=== PATIENT | male | born 1950 | race Caucasian/White ===

== ENCOUNTER → 2020-03-17 14:58 | Outpatient (CLI) | payer MEDICARE, SELFPAY ==
--- NOTE | ~2020-03-17 | XR_ITS ---
EXAMINATION: [id number] EXAM DATE: 03/17/2020 16:10 INDICATION: pt states he had heart surgery 6 weeks ago, pt has been having pain to the left of thora cic spine at approx. T-10. TECHNIQUE: Frontal projection of the upper left ribs, frontal projection of the lower left ribs, obli que projection of the left ribs, frontal and lateral chest x-ray(s) for interpretation. There is no prior study for comparison. FINDINGS: There are no displaced acute left rib fractures identified. Probable old 7th rib fracture. There is moderate anterior wedging of lower thoracic vertebral body, probably T12, probably chronic. Cardiomediastinal silhouette is normal. Sternotomy wires are present without findings to suggest piyush rnal dehiscence. There is multi segmental left basilar linear airspace disease with evidence of volum e loss suggesting that this is atelectasis. Probable small left pleural effusion as well. Right lung is clear. IMPRESSION: 1. Multisegmental left basilar linear opacities likely atelectasis. 2. Probable small left pleural effusion. Reviewed, dictated and finalized at location A.
== END ==
PROVIDERS: PCP Family Medicine; Visit Provider Family Medicine
DX: M54.6 Pain in thoracic spine (principal); R91.8 Other nonspecific abnormal finding of lung field
CPT/HCPCS: 71101

== ENCOUNTER → 2020-05-12 08:17 | Outpatient (CLI) | payer MEDICARE, SELFPAY ==
--- NOTE | ~2020-05-12 | MR_ITS ---
EXAMINATION: MR thoracic spine wo con DATE: 05/12/2020 09:03 INDICATION: Thoracic spine pain. TECHNIQUE: Magnetic resonance imaging (MRI) of the thoracic spine was performed without intravenous c ontrast. Sagittal localizer T1-weighted FSE of the cervicothoracic spine was obtained. Thoracic spine sequences included sagittal T2-weighted FSE, sagittal T1-weighted SE, Sagittal T2-weighted FS FSE, a nd axial T2-weighted FSE. COMPARISON: None FINDINGS: Thoracic kyphosis.ChronicT5 compression fracture with20% anterior vertebral body height loss. Additio nal [id number] fracture with60% anterior vertebral body height loss and a couple millimeter retr opulsion at the cephalad aspect of the posterior wall of the vertebral body. Remaining vertebral body heights are normal. Normal marrow signal. Moderate disc height loss at T7-T8, T8-T9 and to T10-T11. Mild disc height loss at T1-T2 through T6-T7 and at T9-T10 and at T11-T12. Annular fissure and small right paracentral disc protrusion at T2-T3. Additional small right paracentral disc protrusion at T3- T4. Both of these disc bulges resulting in minimal central canal stenosis as does the mild retropulsi on at T11. Mild to moderate multilevel bilateral thoracic facet osteoarthritis resulting in mild neur al foraminal stenosis at multiple levels on both the left and right side of the thoracic spine. There is normal spinal cord signal. The conus terminates at L1. 5 mm T2 hyperintense left renal cyst. Elev ation of the left hemidiaphragm with some consolidation in the left lower lobe which could represent atelectasis and/or pneumonia. Small left pleural effusion. IMPRESSION: 1. Chronic T5 compression fracture and chronic T11 burst fractures. 2. Mild to moderate thoracic spondylosis with only minimal central canal stenosis at a few levels and multilevel mild bilateral neural foraminal stenosis. 3. Elevation of the left hemidiaphragm with small left pleural effusion and consolidation in the left lower lobe which could represent atelectasis and/or pneumonia. Reviewed, dictated and finalized at location B. [employer] IMPRESSION: 1. Chronic T5 compression fracture and chronic T11 burst fractures. 2. Mild to moderate thoracic spondylosis with only minimal central canal stenos is at a few levels and multilevel mild bilateral neural foraminal stenosis. 3. Elevation of the left hemidiaphragm with small left pleural effusion and con solidation in the left lower lobe which could represent atelectasis and/or pneu monia.
== END ==
PROVIDERS: PCP Family Medicine; Visit Provider Family Medicine
DX: M47.894 Other spondylosis, thoracic region (principal)
CPT/HCPCS: 72146